=== PATIENT | male | born 1955 | race African-American/Black ===

== ENCOUNTER → 2017-07-17 | Outpatient (CLI) | payer MEDICARE, OTHER ==
[~2017-07-17] MED LIST: ASPI-624 PO; ATOR20TA66 PO; Azithromycin PO; CEFD300C3 PO; CETI10CA PO; CETI1TAB80 PO; CSPT25 OS; DOCU100T7 PO; DOXY100C2 PO; EMPA25TA PO; GLIP10TA13 PO; GLPZ10TCR PO; Gabapentin PO; INSU100I14 SQ; INSU100V6 SQ; JANUMET; KLONOPIN PO; METF500T8 PO; MNTL10T PO; MRTZ30T1 PO; MTF500T PO; NAPR-243 PO; PIOG45TA PO; PREDNISOLONE; SITA1TAB6 PO; TELM20TA PO
--- NOTE | 2017-07-17 12:59 | Diagnostic Imaging Report ---
INDICATION: Pain. Three views were obtained. FINDINGS: The alignment is normal. There is no fracture or dislocation. Soft tissues are unremarkable. IMPRESSION: No acute fracture or dislocation. Dictated by: Dictated on workstation # [id number]
== END ==
LOC: RAD 11:42
PROVIDERS: ATTEND Family Medicine
DX: S60.152A Contusion of left little finger with damage to nail, initial encounter (principal)
CPT/HCPCS: 73140

== ENCOUNTER 2018-03-14 19:08 | Observation (INO) | payer MEDICARE, OTHER ==
[~2018-03-14] VITALS: Ht 170.2 cm; Wt 89.6 kg
[~2018-03-14 19:08] MED LIST changes: -CSPT25 OS; +CSPT25 OU
[2018-03-14] MEDS ORDERED: ASPIRIN 81 MG CHEW (CHILDREN'S ASA) ONE (19:25)
[2018-03-14] MEDS ORDERED: ASPIRIN 81 MG CHEW (CHILDREN'S ASA) PO ONE (19:30)
[2018-03-14] MEDS ORDERED: NITROGLYCERIN 0.4 MG SL TABS BTL 25'S SL PRN ×2 (19:30→23:45)
--- NOTE | 2018-03-14 19:32 | ED Chest Pain ---
General Chief Complaint: Chest Pain Stated Complaint: CHEST TIGHTNESS;HEAD ACHE;BONE PAIN Source: patient Exam Limitations: no limitations History of Present Illness Date Seen by Provider: Mar 14, 2018 Time Seen by Provider: 19:24 Initial Comments Patient presents the ER by private conveyance with chief complaint of 2 weeks nonproductive hacking, dry cough. No fevers or chills. He then today began to experience some chest pain substernal that does not radiate. Worse with deep inspiration or coughing. He also was having some body aches all over which he thought might be related to his sickle cell trait. He is having no nausea or sweats. No primary history of coronary disease but he does have a strong family history of coronary disease brother age 61 from heart attack. He has diabetes on insulin for a long time. He has blood pressure problems and uses a statin. Does not smoke drink or use recreational drugs. He takes his medications as prescribed. His blood sugars of been around 170-180 today. He is not having any dysuria. No abdominal pain. Does not take blood thinners. Allergies and Home Medications Allergies Coded Allergies: Penicillins (Unverified Allergy, Unknown, 05/01/14) latex (Unverified Allergy, Unknown, 05/01/14) lisinopril (Unverified Allergy, Unknown, 05/01/14) oxycodone HCl (Unverified Allergy, Unknown, 05/01/14) Home Medications Aspirin 81 Mg Tablet, 81 MG PO DAILY, (Reported) Atorvastatin Calcium 20 Mg Tablet, 20 MG PO HS, (Reported) Insulin Aspart 100 Unit/1 Ml Insuln.pen, 5 UNITS SQ UD Prescribed by: MARLA CHAMPAGNE on 08/01/14 135 Insulin Glargine,Hum.rec.anlog 100 Unit/1 Ml Vial, 50 UNIT SQ HS Prescribed by: MARLA CHAMPAGNE on 08/01/14 135 Telmisartan 20 Mg Tablet, 20 MG PO DAILY, (Reported) TAKES FOR KIDNEY FUNCTION NOT BP Timolol Maleate/Dorzolam Hcl 5 Ml Btl, 1 DROP OS DAILY, (Reported) [Gabapentin] 300 MG CAP, 300 MG PO BID Prescribed by: TAJ BYRD on 05/10/14 0806 [Prednisolone] , 10 MG DAILY Beginning today take 6 tablets each a.m. for 5 days Following that reduce the dose by one tablet each day. Your tablets should be used up in 10 days. Prescribed by: LUCIA SHAH on 01/05/15 1039 Patient Home Medication List Home Medication List Reviewed: Yes Review of Systems Review of Systems Constitutional: No chills, No diaphoresis EENTM: No Blurred Vision, No Double Vision Respiratory: Denies Cough, Denies Shortness of Air Cardiovascular: See HPI, Chest Pain; Denies Lightheadedness, Denies Palpitations, Denies Syncope Gastrointestinal: Denies Constipated, Denies Diarrhea, Denies Difficulty Swallowing, Denies Nausea Genitourinary: Denies Burning, Denies Discharge Musculoskeletal: No back pain, No joint pain; muscle pain Skin: No lesions, No lumps Psychiatric/Neurological: Denies Headache, Denies Numbness Past Laawoyp-Gzafxk-Zcpgne Hx Patient Social History Alcohol Use: Denies Use Recreational Drug Use: No Smoking Status: Never a Smoker Recent Foreign Travel: No Contact w/Someone Who Travel: No Immunizations Up To Date Tetanus Booster (TDap): Less than 5yrs Date of Pneumonia Vaccine: May 01, 2014 Date of Influenza Vaccine: Apr 14, 2014 Seasonal Allergies Seasonal Allergies: Yes Past Medical History Appendectomy, Gallbladder, Nose, Orthopedic High Cholesterol, Hypertension Reproductive Disorders: No Sexually Transmitted Disease: No Gastroesophageal Reflux, Hiatal Hernia Fractures Diabetes, Non-Insulin dep Glaucoma Anxiety, PTSD Family Medical History Cardiovascular disease 19 FATHER Completed stroke 19 FATHER Hypertension 19 FATHER Kidney disease G8 BROTHER (KIDNEY CANCER) Myocardial infarction 19 FATHER Physical Exam Vital Signs Vital Signs - First Documented Capillary Refill : Height, Weight, BMI Height: 5'7.00" Weight: 185lbs. 3.6oz. 84.947978gm; BMI Method:Stated General Appearance: WD/WN, Mild Distress HEENT: PERRL/EOMI, TMs Normal, Normal ENT Inspection, Pharynx Normal, Moist Mucous Membranes Neck: Full Range of Motion, Normal Inspection Respiratory: Chest Non Tender, Lungs Clear, Normal Breath Sounds, No Accessory Muscle Use, No Respiratory Distress Cardiovascular: Regular Rate, Rhythm, No Edema, Normal Peripheral Pulses Gastrointestinal: Normal Bowel Sounds, No Organomegaly Extremity: Normal Capillary Refill, No Pedal Edema Neurologic/Psychiatric: Alert, Oriented x3 Skin: Normal Color, Warm/Dry Progress/Results/Core Measures Results/Orders Lab Results Laboratory Tests Test 03/14/18 19:35 Range/Units White Blood Count 6.0 4.3-11.0 10^3/uL Red Blood Count 5.46 4.35-5.85 10^6/uL Hemoglobin 15.5 13.3-17.7 G/DL Hematocrit 45 40-54 % Mean Corpuscular Volume 82 80-99 FL Mean Corpuscular Hemoglobin 28 25-34 PG Mean Corpuscular Hemoglobin Concent 35 32-36 G/DL Red Cell Distribution Width 12.8 10.0-14.5 % Platelet Count 242 130-400 10^3/uL Mean Platelet Volume 11.0 H 7.4-10.4 FL Neutrophils (%) (Auto) 56 42-75 % Lymphocytes (%) (Auto) 27 12-44 % Monocytes (%) (Auto) 11 0-12 % Eosinophils (%) (Auto) 6 0-10 % Basophils (%) (Auto) 1 0-10 % Neutrophils # (Auto) 3.3 1.8-7.8 X 10^3 Lymphocytes # (Auto) 1.6 1.0-4.0 X 10^3 Monocytes # (Auto) 0.7 0.0-1.0 X 10^3 Eosinophils # (Auto) 0.4 H 0.0-0.3 10^3/uL Basophils # (Auto) 0.0 0.0-0.1 10^3/uL Prothrombin Time 12.9 12.2-14.7 SEC INR Comment 1.0 0.8-1.4 Activated Partial Thromboplast Time 32 24-35 SEC D-Dimer 0.41 0.00-0.49 UG/ML Sodium Level 140 135-145 MMOL/L Potassium Level 5.0 3.6-5.0 MMOL/L Chloride Level 107 98-107 MMOL/L Carbon Dioxide Level 19 L 21-32 MMOL/L Anion Gap 14 5-14 MMOL/L Blood Urea Nitrogen 9 7-18 MG/DL Creatinine 1.17 0.60-1.30 MG/DL Estimat Glomerular Filtration Rate > 60 BUN/Creatinine Ratio 8 Glucose Level 87 70-105 MG/DL Calcium Level 9.6 8.5-10.1 MG/DL Corrected Calcium 9.4 8.5-10.1 MG/DL Magnesium Level 3.5 H 1.8-2.4 MG/DL Total Bilirubin 0.3 0.1-1.0 MG/DL Aspartate Amino Transf (AST/SGOT) 30 5-34 U/L Alanine Aminotransferase (ALT/SGPT) 20 0-55 U/L Alkaline Phosphatase 89 40-136 U/L Myoglobin 28.3 10.0-92.0 NG/ML Troponin I < 0.30 <0.30 NG/ML B-Type Natriuretic Peptide < 10.0 <100.0 PG/ML Total Protein 7.9 6.4-8.2 GM/DL Albumin 4.3 3.2-4.5 GM/DL Lipase 33 8-78 U/L My Orders Orders - GT PUENTES Aspirin Chewable Tablet (Baby Aspirin Ch (03/14/18 19:25) Cbc With Automated Diff (03/14/18) Magnesium (03/14/18:) Ekg Tracing (03/14/18) Cardiac Profile 1 (03/14/18) Comprehensive Metabolic Panel (03/14/18) Myoglobin Serum (03/14/18:) Protime With Inr (03/14/18:) Partial Thromboplastin Time (03/14/18:) O2 (03/14/18:) Monitor-Rhythm Ecg Trace Only (03/14/18) Lipid Panel (03/15/18 06:00) Aspirin Chewable Tablet (Baby Aspirin Ch (03/14/18 19:30) Nitroglycerin 0.4 Mg Btl 25's (Nitrostat (03/14/18:30) Saline Lock/Iv-Start (03/14/18:) Lipase (03/14/18:) BNP (03/14/18:) Fibrin Degradation Products (03/14/18:) Chest Pa/Lat (2 View) (03/14/18:) Saline Lock/Iv-Start (03/14/18:) Ns Iv 1000 Ml (Sodium Chloride 0.9%) (03/14/18 19:28) Morphine Injection (Morphine Injection (03/14/18 20:15) Medications Given in ED Current Medications Medications Dose Ordered Sig/Daniel Route Start Time Stop Time Status Last Admin Dose Admin Morphine Sulfate 4 mg ONCE ONCE IVP 03/14/18 20:15 03/14/18 20:16 DC 03/14/18 20:41 4 MG Vital Signs/I&O 03/14/18 03/14/18 03/14/18 19:17 19:17 21:18 Temp 97.9 Pulse 73 Resp 14 B/P (MAP) 128/73 (91) Pulse Ox 97 98 O2 Delivery Room Air Room Air Room Air Progress Progress Note #1: Time: 21:24 Progress Note Patient's feeling just fine except for some pain in his legs that still about 8 out of 10. His chest pains improved although he did not receive any nitroglycerin. Still having occasional dry cough. He is okay was staying in the hospital. Progress Note #2: Time: 00:51 Progress Note Chest pain resolved by the time he got here so no nitroglycerin was necessary. Blood pressure is in the 120s. We gave him the initial 4 mg of morphine which did help his pain some so we gave him some more Toradol 15 mg IV before sending him up. Initial ECG Impression Date: Mar 14, 2018 Initial ECG Impression Time: 19:15 Initial ECG Rate: 82 Initial ECG Rhythm: Normal Sinus Initial ECG Intervals: Normal Initial ECG Impression: Normal Comment No ST elevation or depression. Diagnostic Imaging Diagonstic Imaging: Xray Plain Films/CT/US/NM/MRI: chest Comments VIA [facility], [facility]. [place], [place] NAME: LISA JUSTICE MED REC#: [id number] PT STATUS: REG ER : 1955 PHYSICIAN: GT PUENTES MD ADMIT DATE: 03/14/18/ER Draft Date of Exam:03/14/18 CHEST PA/LAT (2 VIEW) EXAM: CHEST PA/LAT (2 VIEW) INDICATION: Chest pain. Cough. COMPARISON: Chest radiograph 05/28/2016. FINDINGS: Normal heart size and pulmonary vascularity. No focal pulmonary opacity, pleural effusion or pneumothorax. No acute osseous findings. Postoperative changes in the right shoulder and lower cervical spine. IMPRESSION: No acute cardiopulmonary findings. Dictated on workstation # [id number] Dict: 03/14/182042 Trans: 03/14/182044 [id number] Interpreted by: LINSEY AQUINO MD Electronically signed by: Reviewed: Reviewed by Me Consults : Consulting Physician: A Departure Communication (Admissions) Time/Spoke to Admitting Phy: 21:25 Discussed the case with Dr. Paul and she agrees see the patient. Time/Spoke to Consulting Phy: 21:15 Discussed case lab EKG imaging with Dr. Dwyer and he like to see the patient in the morning on observation status. Aspirin is all he wants for now. Impression Primary Impression: Chest pain Qualified Codes: R07.1 - Chest pain on breathing Additional Impression: Pleurisy Disposition: ADMITTED INPATIENT Condition: Stable Admissions Decision to Admit Reason: Admit from ER (General) Decision to Admit/Date: Mar 14, 2018 Time/Decision to Admit Time: 21:29 Departure-Patient Inst. Referrals: BEN WHITLOCK MD (PCP/Family) Primary Care Physician GT PUENTES Mar 14, 2018 19:32
[2018-03-14] MEDS: NS IV 1000 ML 1,000 ML IV SCH ×2 (19:37→20:35)
[2018-03-14 19:43] LABS: BASOPHILS % (AUTO) 1 % (0-10); EOSINOPHILS # (AUTO) 0.4 10^3/uL (0.0-0.3); EOSINOPHILS % (AUTO) 6 % (0-10); HEMATOCRIT 45 % (40-54); HEMOGLOBIN 15.5 G/DL (13.3-17.7); LYMPHOCYTES # (AUTO) 1.6 X 10^3 (1.0-4.0); LYMPHOCYTES % (AUTO) 27 % (12-44); MEAN CORPUSCULAR HEMOGLOBIN 28 PG (25-34); MEAN CORPUSCULAR HGB CONC 35 G/DL (32-36); MEAN CORPUSCULAR VOLUME 82 FL (80-99); MONOCYTES # (AUTO) 0.7 X 10^3 (0.0-1.0); MONOCYTES % (AUTO) 11 % (0-12); NEUTROPHILS # (AUTO) 3.3 X 10^3 (1.8-7.8); NEUTROPHILS % (AUTO) 56 % (42-75); PLATELET COUNT 242 10^3/uL (130-400); RED BLOOD COUNT 5.46 10^6/uL (4.35-5.85); RED CELL DISTRIBUTION WIDTH 12.8 % (10.0-14.5)
[2018-03-14 19:54] LABS: PROTHROMBIN TIME PATIENT 12.9 SEC (12.2-14.7)
[2018-03-14] MEDS ORDERED: morphine INJ 10 MG/ML 1ML (SYR OR VIAL) IVP ONE (20:15)
[2018-03-14 20:16] LABS: ALANINE AMINOTRANSFERASE 20 U/L (0-55); ALBUMIN 4.3 GM/DL (3.2-4.5); ALKALINE PHOSPHATASE 89 U/L (40-136); BILIRUBIN,TOTAL 0.3 MG/DL (0.1-1.0); BUN/CREATININE RATIO 8; CALCIUM 9.6 MG/DL (8.5-10.1); CARBON DIOXIDE 19 MMOL/L (21-32); CHLORIDE 107 MMOL/L (98-107); CREATININE SERUM 1.17 MG/DL (0.60-1.30); GFR ESTIMATED > 60; GLUCOSE 87 MG/DL (70-105); LIPASE 33 U/L (8-78); MAGNESIUM 3.5 MG/DL (1.8-2.4); SODIUM 140 MMOL/L (135-145); TOTAL PROTEIN 7.9 GM/DL (6.4-8.2)
[2018-03-14 20:44] LABS: MYOGLOBIN SERUM 28.3 NG/ML (10.0-92.0)
--- NOTE | 2018-03-14 20:45 | Diagnostic Imaging Report ---
EXAM: CHEST PA/LAT (2 VIEW) INDICATION: Chest pain. Cough. COMPARISON: Chest radiograph 05/28/2016. FINDINGS: Normal heart size and pulmonary vascularity. No focal pulmonary opacity, pleural effusion or pneumothorax. No acute osseous findings. Postoperative changes in the right shoulder and lower cervical spine. IMPRESSION: No acute cardiopulmonary findings. Dictated by: Dictated on workstation # [id number]
[2018-03-14] MEDS ORDERED: KETOROLAC 30 MG/ML VIAL IVP ONE (21:45)
[2018-03-14] MEDS ORDERED: ONDANSETRON 4 MG/2 ML (SDV) Z0FRAN IV PRN (23:45)
[2018-03-14] MEDS ORDERED: ACETAMINOPHEN 500 MG TAB (TYLENOL) PO PRN (23:45)
[2018-03-15] VITALS (10 sets, daily range): BP systolic 103–152; BP diastolic 58–81
[2018-03-15] MEDS: KETOROLAC 15 MG/ML VIAL IV PRN ×2 (00:15→08:25)
[2018-03-15] MEDS ORDERED: CATHETER FLUSH 10 ML SYR IV PRN (00:15)
[2018-03-15] MEDS: 1/2 NS W/KCL 20 MEQ/L 1,000 ML IV SCH ×3 (00:15→13:32)
[2018-03-15] MEDS: morphine INJ 4 MG/ML 1 ML (VIAL/SYRINGE) IV PRN ×2 (00:37→05:55)
[2018-03-15] MEDS ORDERED: INSU100V6 SQ (01:32)
[2018-03-15] MEDS ORDERED: INSU100I14 SQ (01:32)
[2018-03-15] MEDS ORDERED: ZOLP10TA PO (04:08)
--- OUTSIDE RECORDS SUMMARY | 2018-03-15 04:32 | XMS REPORT | Continuity of Care Document ---
Author Author [facility] Organization [facility] Address Unknown Phone Unavailable Allergies Active Description Code Type Severity Reaction Onset Reported/Identified Relationship to Patient Clinical Status Yes latex [id number] Drug Allergy Unknown N/A 05/01/2014 Yes lisinopril [id number] Drug Allergy Unknown N/A 05/01/2014 Yes oxycodone HCl [id number] Drug Allergy Unknown N/A 05/01/2014 Yes Penicillins [id number] Drug Allergy Unknown N/A 05/01/2014 Medications There is no data. Problems Date Dx Coded Attending Type Code Diagnosis Diagnosed By 04/25/2013 TRACEY GILL SCANNER SUPERVISOR Ot 388.30 TINNITUS NOS 04/25/2013 TRACEY GILL SCANNER SUPERVISOR Ot 388.70 OTALGIA NOS 04/25/2013 TRACEY GILL SCANNER SUPERVISOR Ot 524.60 TEMPOROMANDIBULAR JOINT DISORDERS, UNSPE 11/29/2013 LEONEL DARLING, GINO T Ot 250.02 DIAB JAYDON WO COMPL, TYPE II OR UNSPEC TY 11/29/2013 LEONEL DARLING, GINO T Ot 682.3 CELLULITIS OF ARM 11/29/2013 LEONEL DARLING, GINO T Ot 789.00 ABDOMINAL PAIN, UNSPECIFIED SITE 05/01/2014 FARHEEN MIX MD Ot 473.9 CHRONIC SINUSITIS NOS 05/01/2014 FARHEEN MIX MD Ot 599.0 URIN TRACT INFECTION NOS 05/01/2014 FARHEEN MIX MD Ot 786.2 COUGH 05/10/2014 KAMLESH DARLING, BEN R Ot 250.00 DIAB JAYDON WO COMPL, TYPE II OR UNSPEC TY 05/10/2014 BEN WHITLOCK MD R Ot 272.4 HYPERLIPIDEMIA NEC/NOS 05/10/2014 BEN WHITLOCK MD R Ot 490 BRONCHITIS NOS 05/10/2014 BEN WHITLOCK MD R Ot 530.81 ESOPHAGEAL REFLUX 05/10/2014 KAMLESH DARLING, BEN R Ot 553.3 DIAPHRAGMATIC HERNIA 05/10/2014 KAMLESH DARLING, BEN R Ot 593.9 RENAL URETERAL DIS NOS 05/10/2014 KAMLESH DARLING, BEN R Ot 729.5 PAIN IN LIMB 05/24/2014 LEONEL DARLING, GINO T Ot 250.00 DIAB JAYDON WO COMPL, TYPE II OR UNSPEC TY 05/24/2014 LEONEL DARLING, GINO T Ot 729.1 MYALGIA AND MYOSITIS NOS 08/01/2014 KAMLESH DARLING, BEN R Ot 250.02 DIAB JAYDON WO COMPL, TYPE II OR UNSPEC TY 08/01/2014 KAMLESH DARLING, BEN R Ot 272.1 PURE HYPERGLYCERIDEMIA 08/01/2014 KAMLESH DARLING, BEN R Ot 272.4 HYPERLIPIDEMIA NEC/NOS 08/01/2014 KAMLESH DARLING, BEN R Ot 356.9 IDIO PERIPH NEURPTHY NOS 08/01/2014 KAMLESH DARLING, BEN R Ot 401.9 HYPERTENSION NOS 08/01/2014 KAMLESH DARLING, BEN R Ot 530.81 ESOPHAGEAL REFLUX 08/01/2014 KAMLESH DARLING, BEN R Ot 733.6 TIETZE'S DISEASE 08/01/2014 KAMLESH DARLING, BEN R Ot 786.50 08/01/2014 KAMLESH DARLING, BEN R Ot V17.49 FAMILY HISTORY OF OTHER CARDIOVASCULAR D 08/01/2014 KAMLESH DARLING, BEN R Ot 250.02 08/01/2014 KAMLESH DARLING, BEN R Ot 272.1 08/01/2014 KAMLESH DARLING, BEN R Ot 272.4 08/01/2014 KAMLESH DARLING, BEN R Ot 356.9 08/01/2014 KAMLESH DARLING, BEN R Ot 401.9 08/01/2014 KAMLESH DARLING, BEN R Ot 786.50 08/01/2014 KAMLESH DARLING, BEN R Ot V17.49 08/03/2014 GAETANO DARLING, RENAE Quezada Ot 840.4 08/03/2014 GAETANO DARLING, RENAE Quezada Ot E928.9 08/03/2014 GAETANO DARLING, RENAE Quezada Ot V72.63 08/03/2014 GAETANO DARLING, RENAE Quezada Ot V72.84 08/03/2014 GAETANO DARLING, RENAE P Ot V74.8 08/03/2014 KAMLESH DARLING, BEN R Ot 250.02 08/03/2014 KAMLESH DARLING, BEN R Ot 272.1 08/03/2014 KAMLESH DARLING, BEN R Ot 272.4 08/03/2014 KAMLESH DARLING, BEN R Ot 356.9 08/03/2014 KAMLESH DARLING, BEN R Ot 401.9 08/03/2014 KAMLESH DARLING, BEN R Ot 786.50 08/03/2014 KAMLESH DARLING, BEN R Ot V17.49 08/03/2014 KAMLESH DARLING, BEN R Ot 250.02 08/03/2014 KAMLESH DARLING, BEN R Ot 272.1 08/03/2014 KAMLESH DARLING, BEN R Ot 272.4 08/03/2014 KAMLESH DARLING, BEN R Ot 356.9 08/03/2014 KAMLESH DARLING, BEN R Ot 401.9 08/03/2014 KAMLESH DARLING, BEN R Ot 786.50 08/03/2014 KAMLESH DARLING, BEN R Ot V17.49 08/03/2014 KAMLESH DARLING, BEN R Ot 250.02 08/03/2014 KAMLESH DARLING, BEN R Ot 272.1 08/03/2014 KAMLESH DARLING, EBN R Ot 272.4 08/03/2014 KAMLESH DARLING, BEN R Ot 356.9 08/03/2014 KAMLESH DARLING, BEN R Ot 401.9 08/03/2014 KAMLESH DARLING, BEN R Ot 786.50 08/03/2014 KAMLESH DARLING, BEN R Ot V17.49 09/06/2014 Ot 786.50 09/06/2014 Ot 786.50 09/06/2014 Ot 786.50 09/06/2014 Ot 786.50 09/07/2014 GAETANO DARLING, RENAE P Ot 840.4 09/07/2014 GAETANO DARLING, RENAE P Ot E928.9 09/07/2014 GAETANO DARLING, RENAE P Ot V72.63 09/07/2014 GAETANO DARLING, RENAE Quezada Ot V72.84 09/07/2014 GAETANO DARLING, RENAE P Ot V74.8 09/07/2014 Ot 786.50 09/08/2014 Ot 786.50 10/20/2014 Ot 786.50 01/05/2015 ALYSSA DARLING, LUCIA Moran Ot 351.0 SANDERSON'S PALSY 01/05/2015 ALYSSA DARLING, LUCIA Moran Ot 388.70 OTALGIA NOS 03/28/2015 GAETANO DARLING, RENAE P Ot 840.4 03/28/2015 GAETANO DARLING, RENAE P Ot E928.9 03/28/2015 GAETANO DARLING, RENAE P Ot V72.63 03/28/2015 GAETANO DARLING, RENAE P Ot V72.84 03/28/2015 GAETANO DARLING, RENAE P Ot V74.8 03/28/2015 Ot 786.50 05/24/2015 GAETANO DARLING, RENAE P Ot 840.4 05/24/2015 GAETANO DARLING, RENAE P Ot E928.9 05/24/2015 GAETANO DARLING, RENAE P Ot V72.63 05/24/2015 GAETANO DARLING, RENAE P Ot V72.84 05/24/2015 GAETANO DARLING, RENAE P Ot V74.8 05/24/2015 Ot 786.50 05/24/2015 GAETANO DARLING, RENAE P Ot 840.4 05/24/2015 GAETANO DARLING, RENAE P Ot E928.9 05/24/2015 GAETANO DARLING, RENAE P Ot V72.63 05/24/2015 GAETANO DARLING, RENAE P Ot V72.84 05/24/2015 GAETANO DARLING, RENAE P Ot V74.8 05/24/2015 Ot 786.50 11/30/2015 KAMLESH DARLING, BEN R Ot E11.9 TYPE 2 DIABETES MELLITUS WITHOUT COMPLIC 11/30/2015 KAMLESH DARLING, BEN R Ot E78.5 HYPERLIPIDEMIA, UNSPECIFIED 12/30/2015 KAMLESH DARLING, BEN R Ot E11.9 TYPE 2 DIABETES MELLITUS WITHOUT COMPLIC 12/30/2015 KAMLESH DARLING, BEN R Ot E78.5 HYPERLIPIDEMIA, UNSPECIFIED 05/28/2016 GAETANO DARLING, RENAE P Ot 840.4 SPRAIN ROTATOR CUFF 05/28/2016 GAETANO DARLING, RENAE P Ot E928.9 ACCIDENT NOS 05/28/2016 GAETANO DARLING, RENAE P Ot V72.63 PRE-PROCEDURAL LABORATORY EXAMINATION 05/28/2016 RENAE SALTER MD Ot V72.84 EXAM PRE-OPERATIVE NOS 05/28/2016 RENAE SALTER MD Ot V74.8 SCREEN-BACTERIAL DIS NEC 05/28/2016 Ot 786.50 CHEST PAIN NOS 05/28/2016 BEN WHITLOCK MD R Ot E11.9 TYPE 2 DIABETES MELLITUS WITHOUT COMPLIC 05/28/2016 BEN WHITLOCK MD R Ot E78.5 HYPERLIPIDEMIA, UNSPECIFIED 05/30/2016 KAMLESH DARLING, BEN R Ot M79.605 PAIN IN LEFT LEG 05/30/2016 KAMLESH DARLING BEN R Ot R05 COUGH 06/19/2016 KAMLESH DARLING, BEN R Ot M79.605 PAIN IN LEFT LEG 06/19/2016 KAMLESH DARLING, BEN R Ot R05 COUGH 07/10/2016 KAMLESH DARLING, BEN R Ot M79.605 PAIN IN LEFT LEG 07/10/2016 BEN WHITLOCK MD R Ot R05 COUGH 10/15/2016 RENAE SALTER MD Ot 840.4 SPRAIN ROTATOR CUFF 10/15/2016 RENAE SALTER MD Ot E928.9 ACCIDENT NOS 10/15/2016 RENAE SALTER MD Ot V72.63 PRE-PROCEDURAL LABORATORY EXAMINATION 10/15/2016 RENAE SALTER MD Ot V72.84 EXAM PRE-OPERATIVE NOS 10/15/2016 RENAE SALTER MD Ot V74.8 SCREEN-BACTERIAL DIS NEC 10/15/2016 Ot 786.50 CHEST PAIN NOS 10/15/2016 BEN WHITLOCK MD R Ot E11.9 TYPE 2 DIABETES MELLITUS WITHOUT COMPLIC 10/15/2016 BEN WHITLOCK MD R Ot E78.5 HYPERLIPIDEMIA, UNSPECIFIED 10/15/2016 BEN WHITLOCK MD R Ot M79.605 PAIN IN LEFT LEG 10/15/2016 BEN WHITLOCK MD R Ot R05 COUGH 07/17/2017 RENAE SALTER MD Ot 840.4 SPRAIN ROTATOR CUFF 07/17/2017 RENAE SALTER MD Ot E928.9 ACCIDENT NOS 07/17/2017 RENAE SALTER MD Ot V72.63 PRE-PROCEDURAL LABORATORY EXAMINATION 07/17/2017 RENAE SALTER MD Ot V72.84 EXAM PRE-OPERATIVE NOS 07/17/2017 GAETANO DARLING, RENAE Quezada Ot V74.8 SCREEN-BACTERIAL DIS NEC 07/17/2017 Ot 786.50 CHEST PAIN NOS 07/17/2017 BEN WHITLOCK MD, Ot E11.9 TYPE 2 DIABETES MELLITUS WITHOUT COMPLIC 07/17/2017 BEN WHITLOCK MD Ot E78.5 HYPERLIPIDEMIA, UNSPECIFIED 07/17/2017 BEN WHITLOCK MD, Ot M79.605 PAIN IN LEFT LEG 07/17/2017 BEN WHITLOCK MD, Ot R05 COUGH 07/19/2017 BEN WHITLOCK MD, Ot S60.152A CONTUSION OF LEFT LITTLE FINGER W DAMAGE 08/08/2017 BEN WHITLOCK MD, Ot S60.152A CONTUSION OF LEFT LITTLE FINGER W DAMAGE 09/09/2017 BEN WHITLOCK MD, Ot S60.152A CONTUSION OF LEFT LITTLE FINGER W DAMAGE Procedures Code Description Performed By Performed On 37.22 LEFT HEART CARDIAC CATH 08/01/2014 88.42 CONTRAST AORTOGRAM 08/01/2014 88.48 CONTRAST ARTERIOGRAM-LEG 08/01/2014 88.53 LT HEART ANGIOCARDIOGRAM 08/01/2014 88.56 CORONAR ARTERIOGR-2 CATH 08/01/2014 Results There is no data. Encounters ACCT No. Visit Date/Time Discharge Status Pt. Type Provider Facility Loc./Unit Complaint [id number] 07/17/2017 11:42:00 07/17/2017 23:59:59 CLS Outpatient BEN WHITLOCK MD [facility] RAD S60.152A [id number] 05/28/2016 16:07:00 05/28/2016 23:59:59 CLS Outpatient BEN WHITLOCK MD [facility] RAD COUGH,POST LEG PAIN [id number] 11/29/2015 09:16:00 11/29/2015 23:59:59 CLS Outpatient BEN WHITLOCK MD [facility] RAD HYPERTENSION,DM I W/O COMPLICATIONS,HYPERLIPIDEMIA [id number] 01/31/2015 15:16:00 01/31/2015 23:59:59 CLS Preadmit BEN WHITLOCK MD [facility] REHAB [id number] 01/05/2015 08:32:00 01/05/2015 10:45:00 DIS Emergency ALYSSA DARLING, LUCIA Moran [facility] ER PAIN BEHIND LEFT EAR [id number] 08/01/2014 10:44:00 08/01/2014 13:47:00 DIS Inpatient BEN WHITLOCK MD [facility] CSD CHEST PAIN [id number] 05/24/2014 18:38:00 05/24/2014 21:47:00 DIS Emergency LEONEL DARLING, GINO Gtz [facility] ER HIGH BLOOD SUGAR [id number] 05/07/2014 22:55:00 05/10/2014 15:59:00 DIS Inpatient BEN WHITLOCK MD [facility] 4TH BRONCHITIS,NONKETOTIC HYPERGLYCEMIA,ACUTE RENAL IN [id number] 05/01/2014 15:00:00 05/01/2014 18:09:00 DIS Emergency DOMINGUEZ DARLING, FARHEEN Edwards [facility] ER ACHE COUGH HIGH BLOOD SUGAR [id number] 11/29/2013 16:24:00 11/29/2013 20:18:00 DIS Emergency LEONEL DARLING, GINO Gtz [facility] ER HIGH BLOOD SUGAR [id number] 11/20/2013 09:57:00 11/20/2013 23:59:59 [facility] Outpatient GAETANO DARLING, RENAE Quezada [facility] PREOP LEFT TORN ROTATOR CUFF [id number] 04/25/2013 19:13:00 04/25/2013 20:21:00 DIS Emergency TRACEY GILL APRN [facility] ER EAR PAIN, HEADACHE [id number] 09/03/2014 08:03:00 Document Registration [id number] 08/03/2014 09:53:00 Document Registration
[2018-03-15] MEDS: CATHETER FLUSH 10 ML SYR IV SCH ×2 (05:22→13:32)
[2018-03-15 05:32] LABS: BASOPHILS % (AUTO) 0 % (0-10); EOSINOPHILS # (AUTO) 0.3 10^3/uL (0.0-0.3); EOSINOPHILS % (AUTO) 6 % (0-10); HEMATOCRIT 39 % (40-54); HEMOGLOBIN 13.4 G/DL (13.3-17.7); LYMPHOCYTES # (AUTO) 1.4 X 10^3 (1.0-4.0); LYMPHOCYTES % (AUTO) 30 % (12-44); MEAN CORPUSCULAR HEMOGLOBIN 28 PG (25-34); MEAN CORPUSCULAR HGB CONC 34 G/DL (32-36); MEAN CORPUSCULAR VOLUME 83 FL (80-99); MEAN PLATELET VOLUME 11.4 FL (7.4-10.4); MONOCYTES # (AUTO) 0.5 X 10^3 (0.0-1.0); MONOCYTES % (AUTO) 12 % (0-12); NEUTROPHILS # (AUTO) 2.4 X 10^3 (1.8-7.8); NEUTROPHILS % (AUTO) 52 % (42-75); PLATELET COUNT 189 10^3/uL (130-400); RED BLOOD COUNT 4.75 10^6/uL (4.35-5.85); RED CELL DISTRIBUTION WIDTH 12.6 % (10.0-14.5); WHITE BLOOD COUNT 4.5 10^3/uL (4.3-11.0)
--- OUTSIDE RECORDS SUMMARY | 2018-03-15 05:49 | XMS REPORT | Continuity of Care Document ---
Author Author [facility] Organization [facility] Address Unknown Phone Unavailable Allergies Active Description Code Type Severity Reaction Onset Reported/Identified Relationship to Patient Clinical Status Yes latex [id number] Drug Allergy Unknown N/A 05/01/2014 Yes lisinopril [id number] Drug Allergy Unknown N/A 05/01/2014 Yes oxycodone HCl [id number] Drug Allergy Unknown N/A 05/01/2014 Yes Penicillins [id number] Drug Allergy Unknown N/A 05/01/2014 Medications There is no data. Problems Date Dx Coded Attending Type Code Diagnosis Diagnosed By 04/25/2013 TRACEY GILL FLIGHT OPERATIONS MANAGER Ot 388.30 TINNITUS NOS 04/25/2013 TRACEY GILL FLIGHT OPERATIONS MANAGER Ot 388.70 OTALGIA NOS 04/25/2013 TRACEY GILL FLIGHT OPERATIONS MANAGER Ot 524.60 TEMPOROMANDIBULAR JOINT DISORDERS, UNSPE 11/29/2013 LEONEL DARLING, GINO T Ot 250.02 DIAB JAYDON WO COMPL, TYPE II OR UNSPEC TY 11/29/2013 LEONEL DARLIGN, GINO T Ot 682.3 CELLULITIS OF ARM [...] DARLING, BEN R Ot 356.9 08/01/2014 KAMLESH DARILNG, BEN R Ot 401.9 08/01/2014 KAMLESH DARLING, [...] Status Pt. Type Provider Facility Loc./Unit Complaint [id number] 07/17/2017 11:42:00 07/17/2017 23:59:59 CLS Outpatient BEN WHITLOCK MD [facility] RAD S60.152A [id number] 05/28/2016 16:07:00 05/28/2016 23:59:59 CLS Outpatient BEN WHITLOCK MD [facility] RAD COUGH,POST LEG PAIN [id number] 11/29/2015 09:16:00 11/29/2015 23:59:59 CLS Outpatient BEN WHITLOCK MD [facility] RAD HYPERTENSION,DM I W/O COMPLICATIONS,HYPERLIPIDEMIA [id number] 01/31/2015 15:16:00 01/31/2015 23:59:59 CLS Preadmit BEN WHITLOCK MD [facility] REHAB [id number] 01/05/2015 08:32:00 01/05/2015 10:45:00 DIS Emergency ALYSSA DARLING, LUCIA Moran [facility] ER PAIN BEHIND LEFT EAR [id number] 08/01/2014 10:44:00 08/01/2014 13:47:00 DIS Inpatient BEN WHITLOCK MD [facility] CSD CHEST PAIN [id number] 05/24/2014 18:38:00 05/24/2014 21:47:00 DIS Emergency LEONEL DARLING, GINO Gtz [facility] ER HIGH BLOOD SUGAR [id number] 05/07/2014 22:55:00 05/10/2014 15:59:00 DIS Inpatient BEN WHITLOCK MD [facility] 4TH BRONCHITIS,NONKETOTIC HYPERGLYCEMIA,ACUTE RENAL IN [id number] 05/01/2014 15:00:00 05/01/2014 18:09:00 DIS Emergency DOMINGUEZ DARLING, FARHEEN Edwards [facility] ER ACHE COUGH HIGH BLOOD SUGAR [id number] 11/29/2013 16:24:00 11/29/2013 20:18:00 DIS Emergency LEONEL DARLING, GINO Gtz [facility] ER HIGH BLOOD SUGAR [id number] 11/20/2013 09:57:00 11/20/2013 23:59:59 [facility] Outpatient GAETANO DARLING, RENAE Quezada [facility] PREOP LEFT TORN ROTATOR CUFF [id number] 04/25/2013 19:13:00 04/25/2013 20:21:00 DIS Emergency TRACEY GILL APRN [facility] ER EAR PAIN, HEADACHE [id number] 09/03/2014 08:03:00 Document Registration [id number] 08/03/2014 09:53:00 Document Registration
[2018-03-15 05:51] LABS: BUN/CREATININE RATIO 13; CALCIUM 8.4 MG/DL (8.5-10.1); CARBON DIOXIDE 21 MMOL/L (21-32); CHLORIDE 109 MMOL/L (98-107); CHOLESTEROL 107 MG/DL (< 200); CREATININE SERUM 1.08 MG/DL (0.60-1.30); GFR ESTIMATED > 60; GLUCOSE 268 MG/DL (70-105); HDL CHOLESTEROL 33 MG/DL (40-60); POTASSIUM 4.1 MMOL/L (3.6-5.0); SODIUM 138 MMOL/L (135-145); TRIGLYCERIDES 82 MG/DL (<150); VLDL CHOLESTEROL 16 MG/DL (5-40)
[2018-03-15 05:53] LABS: CHOLESTEROL 109 MG/DL (< 200); HDL CHOLESTEROL 32 MG/DL (40-60); TRIGLYCERIDES 84 MG/DL (<150); VLDL CHOLESTEROL 17 MG/DL (5-40)
[2018-03-15] MEDS: inSUlin ASPART (NovoLOG) 1 UNIT/0.01 ML (CHARGE PER UNIT) SC SCH ×6 (06:45→16:53)
--- NOTE | 2018-03-15 08:28 | History & Physical-Hospitalist ---
History of Present Illness HPI/Chief Complaint Pt is a 62yoCM with a PMH of IDDMII, pulmonary HTN, sickle cell treat who presented to the ER due to chest pain. He states his symptoms started on 03/13 with a dry cough and he developed chest pain shortly after that day. He also developed body aches and chills and though he was getting a cold or that this was due to his sickle cell treat. Yesterday he developed substernal chest pain prompting him to seek evaluation in the ER. By the time he arrived in the ER his chest pain had resolved. His troponin was negative and he was given ASA. Due to his history of IDDMII he was admitted for observation. Today he states his main complaints are his cough and body aches. Of note he recently had both a cardiac catheterization and stress test in December/January of this year and was told his tests where normal. Source: patient Exam Limitations: no limitations Date Seen 03/15/18 Time Seen by Provider: 08:05 Attending Physician Nancy Elder MD PCP Rustam Mi MD Referring Physician Date of Admission Mar 14, 2018 at 9:30 pm Home Medications & Allergies Home Medications Reviewed patient Home Medication Reconciliation performed by pharmacy medication reconciliations internetworking technician and/or nursing. Patients Allergies have been reviewed. Allergies Allergies Coded Allergies Penicillins (Unverified Allergy, Unknown, 05/01/14) latex (Unverified Allergy, Unknown, 05/01/14) lisinopril (Unverified Allergy, Unknown, 05/01/14) oxycodone HCl (Unverified Allergy, Unknown, 05/01/14) Past Gmgdwva-Msfpqv-Vjkpkr Hx Past Med/Social Hx: Reviewed Nursing Past Med/Soc Hx Patient Social History Marrital Status: Alcohol Use: Denies Use Recreational Drug Use: No Smoking Status: Never a Smoker 2nd Hand Smoke Exposure: No Physical Abuse Screen: No Sexual Abuse: No Recent Foreign Travel: No Contact w/other who traveled: No Recent Hopitalizations: No Recent Infectious Disease Expo: No Immunizations Up To Date Tetanus Booster (TDap): Less than 5yrs Date of Pneumonia Vaccine: May 01, 2014 Date of Influenza Vaccine: Apr 14, 2014 Seasonal Allergies Seasonal Allergies: Yes Past Medical History Surgeries: Appendectomy, Eye Surgery, Gallbladder, Nose, Orthopedic Currently Using CPAP: Yes Cardiac: High Cholesterol, Hypertension Reproductive: No Sexually Transmitted Disease: No Gastrointestinal: Gastroesophageal Reflux, Hiatal Hernia Musculoskeletal: Fractures Endocrine: Diabetes, Non-Insulin dep Are Your Blood Sugars Over 250: No HEENT: Glaucoma Hearing Impairment: Denies Psychosocial: Anxiety, PTSD History of Blood Disorders: No (SICKLE CELL TRAIT) Family History Cardiovascular disease 19 FATHER Completed stroke 19 FATHER Hypertension 19 FATHER Kidney disease G8 BROTHER (KIDNEY CANCER) Myocardial infarction 19 FATHER Heart Disease, CAD Over 55 Years Old Review of Systems Constitutional: chills; No diaphoresis, No fever EENTM: hoarseness, nose congestion; No throat swelling Respiratory: cough; No phlegm, No short of breath Cardiovascular: chest pain; No palpitations, No syncope Gastrointestinal: abdominal pain (with cough); No constipation, No diarrhea, No nausea, No vomiting Genitourinary: no symptoms reported Musculoskeletal: joint pain Skin: no symptoms reported Psychiatric/Neurological: No Symptoms Reported Physical Exam Physical Exam Vital Signs Vital Signs - First Documented Capillary Refill : Less Than 3 Seconds Height, Weight, BMI Height: 5'7.00" Weight: 197lbs. 8.0oz. 89.748792pc; 30.9 BMI Method:Estimated General Appearance: No Apparent Distress, WD/WN HEENT: PERRL/EOMI, Moist Mucous Membranes Neck: Non Tender, Supple Respiratory: Lungs Clear, No Respiratory Distress Cardiovascular: Regular Rate, Rhythm, No Murmur Gastrointestinal: Normal Bowel Sounds, Non Tender, Soft Extremity: Normal Capillary Refill, No Calf Tenderness Neurologic/Psychiatric: Alert, Oriented x3, Normal Mood/Affect Skin: Normal Color, Warm/Dry Results Results/Procedures Labs Laboratory Tests 03/14/18 19:35 03/15/18 05:05 Patient resulted labs reviewed. Imaging: Reviewed Imaging Report Assessment/Plan Admission Diagnosis Chest pain Admission Status: Observation Diagnosis/Problems Diagnosis/Problems (1) Chest pain Status: Acute Assessment & Plan: Reportedly had clean cath in 2 months ago Cardiology consulted, appreciate recs Symptoms more consistent with viral syndrome Qualifiers: Chest pain type: chest pain on breathing Qualified Codes: R07.1 - Chest pain on breathing (2) Cough Status: Acute Assessment & Plan: Tessalon added Consider Honey as well (3) HTN (hypertension) Status: Acute Assessment & Plan: Well controlled Qualifiers: Hypertension type: essential hypertension Qualified Codes: I10 - Essential (primary) hypertension (4) IDDM (insulin dependent diabetes mellitus) Status: Acute Assessment & Plan: Continue on home insulin Sliding scale ordered Fsating BS this AM elevated- trend Clinical Quality Measures AMI/AHF: ASA po Prior to arrival: No DVT/VTE Risk/Contraindication: Risk Factor Score Per Nursin RFS Level Per Nursing on Admit: 3=High NANCY ELDER MD Mar 15, 2018 8:28 am
[2018-03-15] MEDS ORDERED: PATIENT MAY USE OWN MEDS, ALL MC SCH (08:30)
[2018-03-15] MEDS ORDERED: ASPIRIN E.C. 81 MG (ECOTRIN) TAB PO SCH (09:00)
[2018-03-15] MEDS: BENZONATATE 100 MG (TESSALON) CAPSULE PO SCH ×2 (09:19→13:32)
[2018-03-15] MEDS ORDERED: FLUT16SP22 (13:44)
[2018-03-15] MEDS ORDERED: CETI10TA17 PO (13:44)
[2018-03-15] MEDS ORDERED: MULT1TAB69 PO (13:44)
[2018-03-15] MEDS ORDERED: SPIR25TA5 PO (13:44)
[2018-03-15] MEDS ORDERED: METO-387 PO (13:44)
[2018-03-15] MEDS ORDERED: BENZ-36 PO (14:14)
--- NOTE | 2018-03-15 14:16 | Discharge Inst-Simple/Standard ---
Discharge Inst-Standard Discharge Medications New, Converted or Re-Newed RX: Transmitted to Pharmacy Patient Instructions/Follow Up Plan of Care/Instructions/FU: Please continue to take your medications as written. Please follow up with Dr Mi in the next week to follow up this hospital stay. Activity as Tolerated: Yes Discharge Diet: ADA Diet Return to The Hospital For: Chest pain, shortness of breath, fever, or if you feel you are getting worse. NANCY ORTEGA MD Mar 15, 2018 2:16 pm
--- NOTE | 2018-03-15 14:43 | Consultation-Cardiology ---
HPI-Cardiology Cardiology Consultation: Date of Consultation 03/15/18 Time Seen by Provider: 14:05 Date of Admission Attending Physician Nancy Elder MD Admitting Physician Rustam Mi MD Consulting Physician ARNOLDO DIXON MD, MA, FACP, FACC, FSCAI, CCDS Physician requesting consult: Dr Elder HPI: Chief Complaint: CC: Cough, chest discomfort 62 yo man with chronic cough whose cough was much worse for two days prior to admission and associated with pleuritic pain (continuous pain getting worse with cough) at the lower mid chest and the L and the R lower parasternum. Cough is much improved today and so is the chest discomfort. He does not report any fever or chills or shortness of breath or palp or syncope or ankle swelling Review of Systems-Cardiology Review of Systems Constitutional: malaise; No weight loss, No weight gain Eyes: No vision change Ears/Nose/Throat: No ear discharge, No nasal drainage, No recent hearing loss, No ulcerations Respiratory: As described under HPI Cardiovascular: As described under HPI Gastrointestinal: No constipation, No diarrhea, No nausea, No vomiting Genitourinary: No dysuria, No hematuria, No urine frequency changes Musculoskeletal: No back pain, No joint pain Skin: No rash, No ulcerations Psychiatric/Neurological: No seizure, No focal weakness, No syncope Hematologic: No bleeding abnormalities JOT-Tkajjt-Ecmbgc Hx Patient Social History Marrital Status: Alcohol Use: Denies Use Recreational Drug Use: No Smoking Status: Never a Smoker 2nd Hand Smoke Exposure: No Recent Foreign Travel: No Recent Infectious Disease Expo: No Physical Abuse Screen: No Sexual Abuse: No Immunizations Up To Date Tetanus Booster (TDap): Less than 5yrs Date of Pneumonia Vaccine: May 01, 2014 Date of Influenza Vaccine: Apr 14, 2014 Past Medical History PMH As described under Assessment. Family Medical History Family History: Cardiovascular disease 19 FATHER Completed stroke 19 FATHER Hypertension 19 FATHER Kidney disease G8 BROTHER (KIDNEY CANCER) Myocardial infarction 19 FATHER Allergies and Home Medications Allergies Coded Allergies: lisinopril (Unverified Allergy, Severe, 03/15/18) tongue swelling Penicillins (Unverified Allergy, Intermediate, 03/15/18) hives latex (Unverified Allergy, Mild, 03/15/18) hives oxycodone HCl (Unverified Allergy, Unknown, 05/01/14) Home Medications Atorvastatin Calcium 20 Mg Tablet, 20 MG PO HS, (Reported) Benzonatate 100 Mg Capsule, 200 MG PO TID Prescribed by: NANCY ELDER on 03/15/18 1414 Cetirizine HCl 10 Mg Tablet, 10 MG PO DAILY, (Reported) Fluticasone Propionate 16 Gm [place].susp, 2 SPRAYS NA BID, (Reported) Insulin Aspart 300 Units/3 Ml Solution, 15 UNITS SQ AC, (Reported) Insulin Glargine,Hum.rec.anlog 100 Unit/1 Ml Vial, 65 UNIT SQ HS, (Reported) Metoprolol Succinate 25 Mg Tab.er.24h, 25 MG PO DAILY, (Reported) Multivitamin 1 Each Tablet, 1 EACH PO DAILY, (Reported) Spironolactone 25 Mg Tablet, 25 MG PO DAILY, (Reported) Timolol Maleate/Dorzolam Hcl 5 Ml Btl, 1 DROP OU DAILY, (Reported) Patient Home Medication List Home Medication List Reviewed: Yes Physical Exam-Cardiology Physical Exam Vital Signs/I&O 03/15/18 03/15/18 03/15/18 03/15/18 03:00 04:00 07:00 08:00 Temp 97.5 97.3 Pulse 66 70 64 Resp 20 20 B/P (MAP) 130/81 (97) 122/77 (92) Pulse Ox 100 99 O2 Delivery Room Air Room Air 03/15/18 03/15/18 03/15/18 08:00 12:00 13:00 Temp 97.5 97.5 Pulse 70 65 64 Resp 18 18 B/P (MAP) 131/67 (88) 121/59 (79) Pulse Ox 96 97 O2 Delivery Room Air Room Air Capillary Refill : Less Than 3 Seconds Constitutional: AAO x 3, well-developed, well-nourished HEENT: EOMI, hearing is well preserved; No xanthelasmas are seen Neck: No carotid bruit; carotid pulses are 2 + bilaterally, with good upstrokes Respiratory: No accessory muscle use; other (good bilat air entry; mild tenderness over the lower part of the breast bone) Cardiovascular: regular rate-rhythm, S1 and S2, systolic murmur (Faint LISS at card base) Gastrointestinal: No tender; soft; No guarding, No rebound; audible bowel sounds Extremities: No clubbing, No cyanosis, No significant edema Neurologic/Psychiatric: oriented x 3, grossly intact, power is 5/5 both on sides Skin: No rash on exposed areas, No ulcerations on exposed areas Data Review Labs Laboratory Tests 03/14/18 19:35: White Blood Count 6.0, Red Blood Count 5.46, Hemoglobin 15.5, Hematocrit 45, Mean Corpuscular Volume 82, Mean Corpuscular Hemoglobin 28, Mean Corpuscular Hemoglobin Concent 35, Red Cell Distribution Width 12.8, Platelet Count 242, Mean Platelet Volume 11.0H, Neutrophils (%) (Auto) 56, Lymphocytes (%) (Auto) 27 , Monocytes (%) (Auto) 11, Eosinophils (%) (Auto) 6, Basophils (%) (Auto) 1, Neutrophils # (Auto) 3.3, Lymphocytes # (Auto) 1.6, Monocytes # (Auto) 0.7, Eosinophils # (Auto) 0.4H, Basophils # (Auto) 0.0, Prothrombin Time 12.9, INR Comment 1.0, Activated Partial Thromboplast Time 32, D-Dimer 0.41, Sodium Level 140, Potassium Level 5.0, Chloride Level 107, Carbon Dioxide Level 19L, Anion Gap 14, Blood Urea Nitrogen 9, Creatinine 1.17, Estimat Glomerular Filtration Rate > 60, BUN/Creatinine Ratio 8, Glucose Level 87, Calcium Level 9.6, Corrected Calcium 9.4, Magnesium Level 3.5H, Total Bilirubin 0.3, Aspartate Amino Transf (AST/SGOT) 30, Alanine Aminotransferase (ALT/SGPT) 20, Alkaline Phosphatase 89, Myoglobin 28.3, Troponin I < 0.30, B-Type Natriuretic Peptide < 10.0, Total Protein 7.9, Albumin 4.3, Lipase 33 03/15/18 05:05: White Blood Count 4.5, Red Blood Count 4.75, Hemoglobin 13.4, Hematocrit 39L, Mean Corpuscular Volume 83, Mean Corpuscular Hemoglobin 28, Mean Corpuscular Hemoglobin Concent 34, Red Cell Distribution Width 12.6, Platelet Count 189, Mean Platelet Volume 11.4H, Neutrophils (%) (Auto) 52, Lymphocytes (%) (Auto) 30 , Monocytes (%) (Auto) 12, Eosinophils (%) (Auto) 6, Basophils (%) (Auto) 0, Neutrophils # (Auto) 2.4, Lymphocytes # (Auto) 1.4, Monocytes # (Auto) 0.5, Eosinophils # (Auto) 0.3, Basophils # (Auto) 0.0, Sodium Level 138, Potassium Level 4.1, Chloride Level 109H, Carbon Dioxide Level 21, Anion Gap 8, Blood Urea Nitrogen 14, Creatinine 1.08, Estimat Glomerular Filtration Rate > 60, BUN/ Creatinine Ratio 13, Glucose Level 268H, Calcium Level 8.4L, Troponin I < 0.30, Triglycerides Level 82, Cholesterol Level 107, LDL Cholesterol Direct 61, VLDL Cholesterol 16, HDL Cholesterol 33L 03/15/18 05:19: Glucometer 244H 03/15/18 12:44: Glucometer 180H Laboratory Tests 03/14/18 19:35 03/15/18 05:05 A/P-Cardiology Assessment/Admission Diagnosis Dry cough, etiology undetermined, [place] [facility] [place]related lower chest discomfort w/o any evidence of ACS Mild to mod pulmonary hypertension followed and treated by Dr Tilley at [facility] R heart cath by Shields on 12/18/17 at [facility] showed PA pressure 41/13/27 and PCWP 18 mmHg and pulm vasc rsesistnace 1.4 Wood units Echo and stress echo by Dr Stephen on 02/05/18: LVEF normal, no significant valvular heart disease, no pericard eff, negative stress echo fo ischemia, diastolic hypertensive response to exercise L heart cath 08/01/14 at this [facility]: 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 , no significant obstructive CAD, LVEF 60% DM II, insulin-requiring Hypertension Discussion and Recomendations * I had a long and detailed discussion with him regarding his CV issues * I obtained and reviewed recent records from [facility] * I discussed his case with Dr Elder on the phone * Current symptoms do not appear to be of cardiac origin * Continuing risk factor mod is advised * 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
[2018-03-15] MEDS ORDERED: inSUlin DETERMIR 1 UNIT/0.01 ML (LEVEMIR) CHARGE PER UNIT SQ SCH (21:00)
[2018-03-15] MEDS ORDERED: ATORVASTATIN 40 MG (LIPITOR) TABLET PO SCH (21:00)
== END 2018-03-15 17:07 | disposition home or self-care (01) ==
LOC: EDUNIT# 19:08 → ER 19:10 → 4TH 21:30 → UNDOADMOB 21:30 → 4TH 23:40 → UNDODISOB 03-15 17:09
PROVIDERS: ADMIT Family Medicine; ATTEND Family Medicine
DX: R07.1 Chest pain on breathing (principal); R09.1 Pleurisy; R05 Cough; I27.20 Pulmonary hypertension, unspecified; I10 Essential (primary) hypertension; E78.00 Pure hypercholesterolemia, unspecified; K21.9 Gastro-esophageal reflux disease without esophagitis; K44.9 Diaphragmatic hernia without obstruction or gangrene; E11.9 Type 2 diabetes mellitus without complications; F43.10 Post-traumatic stress disorder, unspecified; Z82.49 Family history of ischemic heart disease and other diseases of the circulatory system; Z79.82 Long term (current) use of aspirin; Z79.4 Long term (current) use of insulin; Z79.52 Long term (current) use of systemic steroids
CPT/HCPCS: 36415; 71046; 80048; 80053; 80061; 82962; 83690; 83735; 83874; 83880; 84484; 85025; 85379; 85610; 85730; 93005; 93041; 96374; 96375; G0378